=== PATIENT | male | born 1960 ===

== ENCOUNTER 2017-02-10 08:51 | Inpatient (IN) | payer BC, OTHER ==
[~2017-02-10] VITALS: Ht 182.9 cm; Wt 81.6 kg
--- NOTE | 2017-02-11 10:20 | NUR ---
PRE ADMISSION 56 year old male presents at intake, alert and oriented x4, verbally responsive, not in any apparent acute distress. Patient's BP: 101/71 P:92 T: 98.0, R: 16, o2sat: 96% room air. Patient denies any food or drug allergies. Reports substance use of: oxycodone, prescribed to patient by his doctor for pain mgmt, Patient reports 4 ankle fusion surgeries in the past 4 years. Patient reports taking oxycodone every day for four years 15mg QID PO, last took 02/10/2017 at 0200, 15mg. Patient reports take Neurontin as ordered. Patient reports pre existing diagnosis of: anxiety. Denies any history of seizure. Patient was educated regarding all unit policies and procedures with good verbal understanding. Patient was seen and examined by Dr. jackson at intake office.
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
[2017-02-11] MEDS ORDERED: GABA-534 PO (11:01)
[2017-02-11] MEDS ORDERED: ASPI-869 PO (11:01)
[2017-02-11 11:26] VITALS: BP 101/71
[2017-02-11 13:00] VITALS: BP 118/83
[2017-02-11] MEDS ORDERED: ACETAMINOPHEN 325 MG TABLET PO PRN (13:15)
[2017-02-11] MEDS ORDERED: DICYCLOMINE HCL 20 MG TABLET PO PRN (13:15)
[2017-02-11] MEDS ORDERED: ONDANSETRON ODT 4 MG TAB.RAPDIS SL PRN (13:15)
[2017-02-11] MEDS ORDERED: MAGNESIUM HYDROXIDE 30 ML LIQUID UDC PO PRN (13:15)
[2017-02-11] MEDS ORDERED: ONDANSETRON 4 MG/2 ML VIAL IM PRN (13:15)
[2017-02-11] MEDS ORDERED: BUPRENORPHINE HCL 2 MG TAB.SUBL SL PRN (13:15)
[2017-02-11] MEDS ORDERED: MAG HYDROX/AL HYDROX/SIMETH 30 ML LIQUID UDC PO PRN (13:15)
[2017-02-11] MEDS ORDERED: LOPERAMIDE HCL 2 MG CAPSULE PO PRN ×2 (13:15)
[2017-02-11] MEDS ORDERED: MIRALAX 17 GM POWD.PACK PO PRN (13:15)
[2017-02-11] MEDS: GABAPENTIN 300 MG CAPSULE PO SCH ×2 (14:16→20:28)
[2017-02-11] MEDS: HYDROXYZINE PAMOATE 25 MG CAPSULE PO PRN ×2 (14:16→21:08)
[2017-02-11 14:49] LABS: *AMPHETAMINE, URINE NEGATIVE (NEGATIVE); *BARBITURATE, URINE NEGATIVE (NEGATIVE); *CANNABINOID, URINE NEGATIVE (NEGATIVE); *COCCAINE, URINE NEGATIVE (NEGATIVE); *OPIATE, URINE POSITIVE (NEGATIVE); *PHENCYCLIDINE SCREEN,URINE NEGATIVE (NEGATIVE)
--- NOTE | 2017-02-11 15:17 | NUR ---
VISTARIL REASSESSMENT Medication with some relief, patient still feeling "a little bit anxious" will continue to monitor. encouraged to attend group therapies/sessions to learn new coping skills to prevent relapse.
[2017-02-11 17:09] VITALS: BP 128/87
[2017-02-11] MEDS: IBUPROFEN 600 MG TABLET PO PRN (17:18)
--- NOTE | 2017-02-11 17:18 | NUR ---
PRN IBUPROFEN Patient c/o generalized body pain, 10/25, administered ibuprofen as ordered, will monitor effectiveness of medication.
[2017-02-11] MEDS ORDERED: BUPRENORPHINE HCL 2 MG TAB.SUBL SL ONE (17:30)
--- NOTE | 2017-02-11 18:18 | NUR ---
IBUPROFEN REASSESSMENT Patient reports medication effective, current pain level 2/10 tolerable as per patient, will continue to monitor.
--- NOTE | 2017-02-11 18:25 | NUR ---
PRN VISTARIL Patient c/o increase in anxiety, provided with non pharmacological interventions with no relief, administered Vistaril as ordered, will monitor effectiveness of medication. Addendum: 02/11/17 at 1826 by SOPHY RUEDA LVN medication above was administered at 1417.
--- NOTE | 2017-02-11 18:51 | NUR ---
END OF SHIFT Patient alert and oriented x4, patient compliant with therapeutic plan of care. Patient with admitting Dx: Opiate dependence, patient was administered during shift, continues under close observation, patient is scheduled to begin a 4 day Subutex taper tomorrow morning, during shift patient receive a one time dose of Subutex 2mgSL as ordered, by Dr. Martinez, medication well tolerated. 1300 assessment patient presented with: anxiety with cow score of: 2; 1700 assessment patient presented with: c/o chills, severe bone and joint aches, increase in anxiety and irritable with cow score of: 6. Patient encouraged adequate PO fluid intake as tolerated, Encouraged to attend group therapies/sessions to learn new coping skills to prevent relapse. denies any SI/HI. Patient administered PRN: Ibuprofen and Vistaril during shift, medications effective. Patients safety measures are in place. all needs met and rendered. Patient endorsement report given to night order selector nurse, all pertinent information discussed. Safety measurers in place. will continue to monitor.
--- NOTE | 2017-02-11 19:10 | NUR ---
START OF SHIFT Patient is a 56-year-old male admitted on 02/11/17, earlier today, for opiate dependence. Past medical history includes bilateral total knee replacements and right ankle fusion, x4. Patient is NKA, FULL code, and on a regular diet. Patient is scheduled to start a 4 day Subutex taper tomorrow. Patient is on fall precautions. Upon assessment, patient is awake and oriented x4, complaining of mild "the usual symptoms" without any specific complaints. Respirations are even and unlabored, no distress noted at this time. Patient's bed locked in low position, side rails up x2, call light within reach. Will continue to monitor.
[2017-02-11 20:00] VITALS: BP 103/73
[2017-02-11] MEDS ORDERED: BUPRENORPHINE HCL 2 MG TAB.SUBL SL SCH (21:00)
[2017-02-11] MEDS: diphenhydrAMINE 50 MG CAPSULE PO PRN (21:08)
--- NOTE | 2017-02-11 21:08 | NUR ---
PRN BENADRYL AND VISTARIL Patient complains of inability to sleep and increased anxiety. PRN Benadryl and Vistaril given PO. Patient's respirations are even and unlabored. Safety measures in place, patient's bed is locked in low position, side rails up x2, call light within reach. Will reassess in one hour.
--- NOTE | 2017-02-11 22:08 | NUR ---
PRN BENADRYL AND VISTARIL REASSESSMENT Patient is resting in bed with eyes closed, respirations are even and unlabored. PRN Benadryl and Vistaril effective. Safety measures in place, patient's bed is locked in low position, side rails up x2, call light within reach. Will continue to monitor.
[2017-02-11 23:24] LABS: BASOPHILS % (AUTO) 0.6 % (0.0-2.0); EOSINOPHILS # (AUTO) 0.1 K/uL (0.0-0.7); EOSINOPHILS % (AUTO) 1.6 % (0.0-7.0); HEMATOCRIT 40.6 % (36.7-47.1); HEMOGLOBIN 13.9 g/dL (12.5-16.3); LYMPHOCYTES % (AUTO) 27.4 % (20.5-51.5); MEAN CORPUSCULAR HGB CONC 34 g/dL (32.5-36.3); MEAN CORPUSCULAR VOLUME 90.7 fL (73.0-96.2); MONOCYTES # (AUTO) 0.7 K/uL (2.0-10.0); NEUTROPHILS # (AUTO) 4.5 K/uL (1.8-8.9); NEUTROPHILS % (AUTO) 61.4 % (38.5-71.5); PLATELET COUNT (AUTO) 208 K/uL (152-348); RED BLOOD CELL COUNT(AUTO) 4.47 MIL/uL (4.06-5.63); WHITE BLOOD COUNT (AUTO) 7.3 K/uL (3.6-10.2)
[2017-02-11 23:38] LABS: ALANINE AMINOTRANSFERASE 44 U/L (16-63); ALKALINE PHOSPHATASE 61 U/L (50-136); ASPARTATE AMINOTRANSFERASE 37 U/L (15-37); BILIRUBIN,TOTAL 0.4 mg/dL (0.2-1.0); CARBON DIOXIDE 27 mmol/L (21-32); CHLORIDE 104 mmol/L (98-107); CREATININE 1.2 mg/dL (0.6-1.3); GLUCOSE 115 mg/dL (74-106); MAGNESIUM 2.1 mg/dL (1.8-2.4); TOTAL PROTEIN, SERUM 6.7 g/dL (6.4-8.2); UREA NITROGEN, BLOOD 17 mg/dL (7-18)
--- NOTE | 2017-02-12 | NUR ---
MIDNIGHT VITALS REFUSED, COWS DEFERRED Patient refused midnight vitals signs, respirations are 16/min, even and unlabored. COWS deferred due to patient asleep; to be assessed/scored while patient is awake per unit protocol. Safety measures in place, bed locked in low position, side rails up x2, call light within reach. Will continue to monitor.
[2017-02-12 01:07] LABS: ETHANOL < 3 MG/DL (0-0)
--- NOTE | 2017-02-12 04:00 | NUR ---
4AM VITALS REFUSED, COWS DEFERRED Patient refused 4AM vitals signs, respirations are 16/min, even and unlabored. COWS deferred due to patient asleep; to be assessed/scored while patient is awake per unit protocol. Safety measures in place, bed locked in low position, side rails up x2, call light within reach. Will continue to monitor.
[2017-02-12 04:40] VITALS: BP 114/66
[2017-02-12] MEDS: CLONIDINE HCL 0.1 MG TABLET PO PRN ×2 (04:57→16:53)
[2017-02-12] MEDS: HYDROXYZINE PAMOATE 25 MG CAPSULE PO PRN ×2 (04:57→16:52)
[2017-02-12] MEDS: IBUPROFEN 600 MG TABLET PO PRN (04:57)
--- NOTE | 2017-02-12 04:57 | NUR ---
PRN Administration Patient presented with complains of sweating, chills, 7/10 generalized body aches, slight tremors and mild anxiety. Vitals WNL. PRN Clonidine, Vistaril & Motrin administered as ordered. Will reassess for effectiveness of medication.
--- NOTE | 2017-02-12 05:57 | NUR ---
PRN REASSESSMENT Patient is resting in bed with eyes closed. PRN medications effective. Respirations are even and unlabored. Safety measures in place, bed locked in low position, side rails up x2, call light within reach. Will continue to monitor.
--- NOTE | 2017-02-12 07:30 | NUR ---
END OF SHIFT Patient is a 56-year-old male admitted on 02/11/17 for opiate dependence. Past medical history includes bilateral total knee replacements and right ankle fusion, x4. Patient is NKA, FULL code, and on a regular diet. Patient is scheduled to start a 4 day Subutex taper today. Patient slept for 6 hours, total intake 500mL, void x1, stool x0. PRN Benadryl and Vistaril given last night, PRN Clonidine, Vistaril & Motrin given this morning at 0457. Last COWS score was 7. Patient is on fall precautions. Safety measures in place, patients bed locked in low position, side rails up x2, call light within reach. Will endorse to day shift.
--- NOTE | 2017-02-12 07:45 | NUR ---
START OF SHIFT Rcvd endorsement from ongoing nurse, client is in room, he is a/o x4. Client presents with anxious mood, flat affect, clammy skin, and enlarged pupils. He reports body aches, chills, colds, stomach cramps, and fatigue. Encourage client to attend to group therapy for skills to maintain sober. Encourage client to increase PO fluid intake as tolerated to facilitate detox. Client is a 56 y/o male, admitted to [facility] for withdrawal from prescribed oxycodone. He is on a 4 day Subutex taper, tolerating well (day 2). Last COWS 7 @ 0400. PRN Benadryl 50mg PO for inability to sleep, Vistaril 25mg PO for anxiety, Clonidine 0.1mg for sweating, chills, Vistaril 25mg PO for mild anxiety & Motrin 600mg PO for generalized body aches 09/24 noted effective, client slept6 hrs. He denies a hx of withdrawal-induced seizures, Client reports NKA, full code, regular diet. Side rails x 2 up, universal precautions. Call light within reach.
[2017-02-12] MEDS: GABAPENTIN 300 MG CAPSULE PO SCH ×2 (08:13→14:28)
[2017-02-12] MEDS: BUPRENORPHINE HCL 2 MG TAB.SUBL SL SCH ×3 (08:13→21:07)
--- NOTE | 2017-02-12 08:13 | NUR ---
Tubersol Test 0.1mL ID administered to Left forearm, client tolerated well.
[2017-02-12 08:17] VITALS: BP 118/76
[2017-02-12] MEDS ORDERED: TUBERCULIN,PURIF.PROT.DERIV. 5 TU/0.1 ML TEST ID ONE (09:00)
[2017-02-12 12:32] VITALS: BP 109/72
--- NOTE | 2017-02-12 12:40 | NUR ---
Dr. Martinez ordered PT gait evaluation DME
[2017-02-12] MEDS: KETOROLAC TROMETHAMINE 30 MG INJ IM PRN (14:29)
--- NOTE | 2017-02-12 14:29 | NUR ---
PRN Toradol Inj 30mg IM administered to L deltoid for generalized pain 10/25. Call light within reach.
--- NOTE | 2017-02-12 14:59 | NUR ---
Reassessment PRN Toradol Inj 30mg IM effective L deltoid for generalized pain 0/10. Call light within reach.
--- NOTE | 2017-02-12 16:53 | NUR ---
PRN Vistaril 25mg PO for anxiety, Clonidine 0.1mg PO administered for sweating, chills. Will continue to monitor. call light within reach.
[2017-02-12 16:55] VITALS: BP 129/82
--- NOTE | 2017-02-12 17:53 | NUR ---
Reassessment PRN Vistaril 25mg PO for anxiety, Clonidine 0.1mg for sweating, chills, noted effective.
--- NOTE | 2017-02-12 19:30 | NUR ---
START OF SHIFT Client is a 56 y/o male, admitted to [facility] for withdrawal from prescribed oxycodone. He is on a 4 day Subutex taper, tolerating well (day 2). Last COWS 7 @ 1600. PRN Toradol 30mg INj for generalized body aches 10/25, Vistaril 25mg PO for anxiety, Clonidine 0.1mg for sweating, chills, noted effective. He denies a hx of withdrawal-induced seizures, Client reports NKA, full code, regular diet. Side rails x 2 up, universal precautions. Call light within reach. Addendum: 02/12/17 at 2004 by MIGUEL HOLGUIN RN END OF SHIFT
--- NOTE | 2017-02-12 19:31 | NUR ---
Start of shift note Received report from day shift nurse. Pt is a 56 yo male, A+Ox4, presenting to [facility] for Opiate/Benzo dependence. Pt has NKA, is on Full code status, and on Regular diet. Pt is on Fall precautions. Pt has HX of Bilateral knee replacements and Right ankle fusion x4. Pt is on 4 day Subutex taper, tolerated well. No s/s of distress noted at this time. Respirations even and unlabored. Will continue to monitor.
[2017-02-12 20:11] VITALS: BP 98/60
[2017-02-12] MEDS ORDERED: GABAPENTIN 300 MG CAPSULE PO SCH (21:00)
[2017-02-12] MEDS: CLONIDINE HCL 0.1 MG TABLET PO SCH (21:06)
[2017-02-13 00:17] VITALS: BP 108/75
[2017-02-13] MEDS: diphenhydrAMINE 50 MG CAPSULE PO PRN (02:43)
--- NOTE | 2017-02-13 02:52 | NUR ---
PRN Benadryl Pt c/o inab ility to sleep and requested for PRN Benadryl. Medication given and tolerated well. No s/s of distress noted at this time. Respirations even and unlabored. Will continue to monitor.
--- NOTE | 2017-02-13 03:50 | NUR ---
PRN Benadryl Reassessment Medication effective. Pt is resting well in bed. No s/s of ASE/distress noted at this time. Respirations even and unlabored. Will continue to monitor.
[2017-02-13 04:25] VITALS: BP 111/78
--- NOTE | 2017-02-13 07:00 | NUR ---
End of shift note Pt is a 56 yo male, A+Ox4, presenting to [facility] for Opiate/Benzo dependence. Pt has NKA, is on Full code status, and on Regular diet. Pt is on Fall precautions. Pt has HX of Bilateral knee replacements and Right ankle fusion x4. Pt is on 4 day Subutex taper, tolerated well. Pt was given PRN Benadryl @0252. Pt slept for a total of 8 HRS. Last COWS: 4 @0400. No s/s of distress noted at this time. Respirations even and unlabored. Will endorse to day shift nurse.
[2017-02-13 08:00] VITALS: BP 111/93
--- NOTE | 2017-02-13 08:07 | NUR ---
START OF SHIFT RECEIVED PT LAYING IN BED, A/O X4. PT PRESENTED ANXIETY AND WORRIED AFFECT. PT REPORTED HAVING BODY ACHES, RESTLESSNESS, DYSPEPSIA, STOMACH DISCOMFORT, RUNNING NOSE. COWS 5 AT 0800. VITAL SIGNS STABLE. PT IS ON A 4 DAY SUBUTEX TAPER TO MANAGE S/S OF OPIATE W/D. RESPIRATIONS EVEN AND UNLABORED. ENCOURAGED TO TO INCREASE FLUIDS TO PROMOTE/ASSIST IN DETOX. FALL PRECAUTIONS TAKEN. SIDE RAILS UP X2, BED ON LOWEST POSITION. CALL LIGHT WITHIN REACH. WILL CONTINUE TO MONITOR AND OFFER SUPPORT.
[2017-02-13] MEDS: GABAPENTIN 300 MG CAPSULE PO SCH ×3 (08:33→21:20)
[2017-02-13] MEDS: CLONIDINE HCL 0.1 MG TABLET PO SCH ×2 (08:37→21:19)
[2017-02-13] MEDS: KETOROLAC TROMETHAMINE 30 MG INJ IM PRN (08:42)
--- NOTE | 2017-02-13 08:42 | NUR ---
PRN TORADOL PT COMPLAINED GENERALIZED BODY ACHES AND RIGHT ANKLE PAIN 9/10 PAIN. ADMINISTERED TORADOL 30 MG/ML IM PRN AT 0842.
[2017-02-13] MEDS ORDERED: BUPRENORPHINE HCL 2 MG TAB.SUBL SL SCH (09:00)
--- NOTE | 2017-02-13 09:12 | NUR ---
PRN TORADOL REASSESSMENT PT STATED PAIN IS MUCH IMPROVED. PAIN LEVEL AT 3/10
[2017-02-13 10:51] LABS: HEPATITIS B SURFACE AG Negative (Negative)
--- NOTE | 2017-02-13 11:16 | NUR ---
Therapist prompted client about group times. Client stated he will start attending groups today.
[2017-02-13 12:00] VITALS: BP 108/80
[2017-02-13] MEDS: HYDROXYZINE PAMOATE 25 MG CAPSULE PO PRN (13:46)
[2017-02-13] MEDS: BUPRENORPHINE HCL 2 MG TAB.SUBL SL SCH ×2 (14:46→21:20)
[2017-02-13] MEDS ORDERED: NAPROXEN 500 MG TABLET PO ONE (15:00)
[2017-02-13 16:00] VITALS: BP 107/77
--- NOTE | 2017-02-13 19:33 | NUR ---
END OF SHIFT PT IS A/O X4, RESPIRATIONS EVEN AND UNLABORED. PT REPORTED MILD ANXIETY AND RIGHT ANKLE PAIN. PT WAS GIVEN TORADOL 30/1ML IM PRN AT 0842 FOR 8/10 PAIN. PT STATED PAIN HAD DIMINISHED AT REASSESSMENT. PT WAS GIVEN VISTARIL 25 MG PO PRN FOR ANXIETY AT 1346. PT STATED THE MEDICATION HAD HELPED HIS ANXIETY. PT HAD COMPLETED HIS SUBUTEX TAPER YESTERDAY. LAST COWS 3 AT 1700. ENDORSEMENT GIVEN TO RAMP JOCKEY NURSE.
--- NOTE | 2017-02-13 19:34 | NUR ---
Start of shift note Received report from day shift nurse. Pt is a 56 yo male, A+Ox4, presenting to [facility] for Opiate/Benzo dependence. Pt has NKA, is on Full code status, and on Regular diet. Pt is on Fall precautions. Pt has HX of Bilateral knee replacements and Right ankle fusion x4. Pt is on 4 day Subutex taper, tolerated well. No s/s of distress noted at this time. Respirations even and unlabored. Will continue to monitor.
[2017-02-13 20:19] VITALS: BP 111/74
[2017-02-13] MEDS: NAPROXEN 500 MG TABLET PO SCH (21:19)
[2017-02-14 00:16] VITALS: BP 115/75
[2017-02-14] MEDS: diphenhydrAMINE 50 MG CAPSULE PO PRN (00:32)
--- NOTE | 2017-02-14 00:35 | NUR ---
PRN Benadryl Pt c/o inability to sleep and requested for PRN Benadryl. Medication given and tolerated well. No s/s of distress noted at this time. Respirations even and unlabored. Will continue to monitor.
[2017-02-14 04:32] VITALS: BP 119/72
--- NOTE | 2017-02-14 06:46 | NUR ---
End of shift note Pt is a 56 yo male, A+Ox4, presenting to [facility] for Opiate/Benzo dependence. Pt has NKA, is on Full code status, and on Regular diet. Pt is on Fall precautions. Pt has HX of Bilateral knee replacements and Right ankle fusion x4. Pt is on 4 day Subutex taper, tolerated well. Pt was given PRN Benadryl @0035. Pt slept for a total of 5 HRS. Last COWS: 3 @0400. No s/s of distress noted at this time. Respirations even and unlabored. Will endorse to day shift nurse.
--- NOTE | 2017-02-14 08:03 | NUR ---
START OF SHIFT RECEIVED PT LAYING IN BED, A/O X4. PT REPORTED HAVING ANXIETY, GENERALIZED PAIN, RESTLESSNESS, SLIGHT, STOMACH DISCOMFORT. PT IS REQUESTING TORADOL WITH HIS MORNING MEDS, PAIN 11/25. COWS 2 AT 0800. PT SLEPT A TOTAL OF 5 HRS. RESPIRATIONS EVEN AND UNLABORED. ENCOURAGED TO TO INCREASE FLUIDS TO PROMOTE/ASSIST IN DETOX. FALL PRECAUTIONS TAKEN. SIDE RAILS UP X2, BED ON LOWEST POSITION. CALL LIGHT WITHIN REACH. WILL CONTINUE TO MONITOR AND OFFER SUPPORT.
[2017-02-14 08:06] VITALS: BP 114/48
[2017-02-14] MEDS: CLONIDINE HCL 0.1 MG TABLET PO SCH ×2 (08:57→20:22)
[2017-02-14] MEDS: BUPRENORPHINE HCL 2 MG TAB.SUBL SL SCH ×3 (08:57→20:23)
[2017-02-14] MEDS: FAMOTIDINE 20 MG TABLET PO SCH (08:59)
[2017-02-14] MEDS: GABAPENTIN 300 MG CAPSULE PO SCH ×3 (08:59→20:22)
[2017-02-14] MEDS: NAPROXEN 500 MG TABLET PO SCH ×2 (08:59→20:23)
[2017-02-14] MEDS: KETOROLAC TROMETHAMINE 30 MG INJ IM PRN (09:00)
--- NOTE | 2017-02-14 09:00 | NUR ---
REFUSED MEDICATION PT REFUSED NAPROXEN AT 0900. PT REQUESTED TO HAVE TORADOL 30 MG IM INSTEAD AND IT WORKS FOR HIS PAIN.
--- NOTE | 2017-02-14 09:00 | NUR ---
PRN PT C/O PAIN IN THE RIGHT ANKLE 11/25. TORADOL GIVEN 30 MG IM PRN. PT TOLERATED WELL.
--- NOTE | 2017-02-14 10:00 | NUR ---
REASSESSMENT PT GIVEN TORADOL PRN FOR 9 /10 PAIN IN RIGHT ANKLE. REASSESSED AT 1000 AND PT HAD LESS PAIN.
[2017-02-14 12:00] VITALS: BP 114/48
[2017-02-14 16:00] VITALS: BP 149/77
[2017-02-14] MEDS: HYDROXYZINE PAMOATE 25 MG CAPSULE PO PRN (17:08)
--- NOTE | 2017-02-14 17:08 | NUR ---
PRN PT C/O ANXIETY AND ADMINISTERED VISTARIL 25 MG PO PRN AT 1708.
--- NOTE | 2017-02-14 17:19 | NUR ---
client was prompted to attend group today. Client agreed to attend.
--- NOTE | 2017-02-14 19:19 | NUR ---
END OF SHIFT PT IS SITTING IN BED, A/O X4. PT REPORTED HAVING ANXIETY, PAIN IN THE RIGHT ANKLE AND BILATERAL KNEES. PT OBSERVED TO BE AGITATED AND STATED HE HAS ANXIETY. PT LAST COWS 3 AT 1700. PT HAS BEEN GIVEN TORADOL 30 MG IM PRN PAIN AT 0900 AND PT REPORTED MED EFFECTIVE UPON REASSESSMENT. PT HAS BEEN GIVEN VISTARIL 25 MG PO PRN ANXIETY AT 1708. PT REFUSED NAPROXEN IN THE AM AND REQUESTED FOR TORADOL. RESPIRATIONS EVEN AND UNLABORED. ENCOURAGED TO TO INCREASE FLUIDS TO PROMOTE/ASSIST IN DETOX. FALL PRECAUTIONS TAKEN. SIDE RAILS UP X2, BED ON LOWEST POSITION. CALL LIGHT WITHIN REACH. WILL GIVE ENDORSEMENT TO NIGHT NURSE.
--- NOTE | 2017-02-14 19:30 | NUR ---
START OF SHIFT Pt is a 56 y/o male admitted on 02/11/17 for opiate and benzo dependence. Pt was dependent on oxycodone 15 mg QID for 4 years and Valium 5 mg weekly for 4 years. Pt is full code, NKA, regular diet and on fall precautions. No reported seizure hx. Pt reports PMH of bilateral total knee replacement, ankle fusion x 4 and anxiety. Pt is also positive for Hepatitis C. Pt is on a 4 day Subutex taper that started on 02/12/17, tolerating well. Last COW 3 during day shift. Pt administered PRN Toradol and Vistaril during the day. Upon assessment pt presents with generalized body aches, anxiety, restlessness, intermittent tremors, chills, mild nausea, mild stomach cramps, dysphoria and anhedonia. Pt also complains of pain in bilateral knees and right ankle r/t chronic pain. Respirations 16, even and unlabored. Denies V/D. Denies chest pain or SOB. Medications due. Safety measures in place.
[2017-02-14 20:00] VITALS: BP_SYST 109; BP_SYST 117; BP_DIAS 78; BP_DIAS 79
--- NOTE | 2017-02-15 | NUR ---
COWS DEFERRED AND VITALS REFUSED Pt is laying in bed with eyes closed, COWS deferred, to be assessed when pt is awake per orders. Vitals refused. Respirations 16, even and unlabored. Safety measures in place. Call light within reach. Will continue to monitor.
--- NOTE | 2017-02-15 07:02 | NUR ---
END OF SHIFT Pt is a 56 y/o male admitted on 02/11/17 for opiate and benzo dependence. Pt was dependent on oxycodone 15 mg QID for 4 years and Valium 5 mg weekly for 4 years. Pt is full code, NKA, regular diet and on fall precautions. No reported seizure hx. Pt reports PMH of bilateral total knee replacement, ankle fusion x 4 and anxiety. Pt is also positive for Hepatitis C. Pt is on a 4 day Subutex taper that started on 02/12/17, tolerating well. Pt presented with generalized body aches, anxiety, restlessness, intermittent tremors, chills, mild nausea, mild stomach cramps, dysphoria and anhedonia. Pt also complains of pain in bilateral knees and right ankle r/t chronic pain. Scheduled medications administered, effective in S/S of withdrawal as verbalized by pt. Last COWS 5 at 1999. Pt slept 8 hours. Intake 1110 ml, void x 2, stool x 0. Safety measures in place. Call light within reach. Pts needs have been met. Endorsed to day shift nurse.
--- NOTE | 2017-02-15 07:30 | NUR ---
START OF SHIFT Pt 56 y/o male admitted for opiate dependence. Pt received in room awake watching television on bed. Pt alert and oriented to name, place, and time. Perrla. Skin warm and slightly moist to touch. Respirations even and unlabored. Bilateral hand tremors noted slightly. It was reported that pt slept for 8 hours last night. Pt appears slightly anxious. Pt with c/o chronic pain of BLE. Bed on lowest position with side rails x2 up for safety. Call light within reach. No distress noted at this time.
[2017-02-15 08:31] VITALS: BP 117/70
[2017-02-15] MEDS: FAMOTIDINE 20 MG TABLET PO SCH (08:36)
[2017-02-15] MEDS: GABAPENTIN 300 MG CAPSULE PO SCH ×3 (08:36→20:58)
[2017-02-15] MEDS: CLONIDINE HCL 0.1 MG TABLET PO SCH ×2 (08:37→20:59)
[2017-02-15] MEDS: KETOROLAC TROMETHAMINE 30 MG INJ IM PRN ×3 (08:39→23:06)
--- NOTE | 2017-02-15 08:39 | NUR ---
PRN Pt states has BLE pain 10/25. Toradol IM prn per MD order given and tolerated well.
[2017-02-15] MEDS: NAPROXEN 500 MG TABLET PO SCH ×2 (08:46→21:00)
[2017-02-15] MEDS ORDERED: BUPRENORPHINE HCL 2 MG TAB.SUBL SL SCH (09:00)
--- NOTE | 2017-02-15 09:39 | NUR ---
PRN MAYRA Pt states pain 06/25.
[2017-02-15] MEDS: HYDROXYZINE PAMOATE 25 MG CAPSULE PO PRN ×2 (10:32→22:43)
--- NOTE | 2017-02-15 10:36 | NUR ---
PRN Pt anxious and restless. Vistaril po prn per MD order given and tolerated well.
--- NOTE | 2017-02-15 11:36 | NUR ---
PRN EVAL Pt observed in patio at this time. No distress noted at this time.
[2017-02-15 12:24] VITALS: BP 124/78
[2017-02-15 16:00] VITALS: BP 104/72
--- NOTE | 2017-02-15 17:09 | NUR ---
PRN pt with c/o pain ble 10/25. Toradol im prn per MD order given and tolerated well.
--- NOTE | 2017-02-15 18:09 | NUR ---
PRN MAYRA Pt states pain 05/25. Pt observed walking around the unit.
--- NOTE | 2017-02-15 18:30 | NUR ---
END OF SHIFT Pt 56 y/o male admitted for opiate dependence. Pt alert and oriented to name, place, and time. Perrla. Skin warm and slightly moist to touch. Respirations even and unlabored. Bilateral hand tremors noted. Pt observed mostly in room throughout the day, but did attend group activity. Pt was seen by MD today. Pt medication compliant and tolerated well. No ASE noted. Bed on lowest position with side rails x2 up for safety. Call light within reach. No distress noted at this time.
--- NOTE | 2017-02-15 19:05 | NUR ---
Start of Shift Patient Received. Patient is in activities room participating in group activities. Patient is a 56 year old male admitted on 02/11/17 for Opiate and Benzo Dependence under the care of Dr. Martinez. Patient has completed a 4 day Subutex and Set for discharge tomorrow morning 02/16/17. Patient is able to verbalize no known allergies, wishes to be full code, following a regular diet, placed on fall precautions, Past medical history noted as Bilateral total knee replacements, Right ankle fusion surgery x4, Anxiety, Hep C (+). Per endorsement, patient received PRN Toradol x2 with medication noted to be effective. Last noted COWS 3. All needs attended to promptly. Will continue to monitor.
[2017-02-15 20:53] VITALS: BP_SYST 111; BP_DIAS 62; BP_DIAS 72
--- NOTE | 2017-02-15 21:00 | NUR ---
Routine Medication Refused Patient Refused routine Naprosyn and verbalized "Im Ok right now. I just dont really think this works as well as the injection." Risks and Benefits explained and patient still refused. Will continue to monitor.
[2017-02-15] MEDS: diphenhydrAMINE 50 MG CAPSULE PO PRN (22:43)
--- NOTE | 2017-02-15 23:10 | NUR ---
PRN Medication Administration Patient verbalizing increased anxiety, inability of falling asleep and increased pain 8/10 due to generalized body aches. PRN Vistaril, PRN Benadryl, PRN Toradol administered. Will continue to monitor.
[2017-02-15] MEDS ORDERED: GABA-534 PO (23:39)
[2017-02-15] MEDS ORDERED: DIPH50CA37 PO (23:39)
[2017-02-15] MEDS ORDERED: DICY20TA28 PO (23:39)
[2017-02-15] MEDS ORDERED: FAMO20TA8 PO (23:39)
[2017-02-15] MEDS ORDERED: HYDR-3895 PO (23:39)
[2017-02-15] MEDS ORDERED: NAPR500T3 PO (23:39)
[2017-02-15] MEDS ORDERED: CLON0.1T14 PO (23:43)
[2017-02-15] MEDS ORDERED: METH-406 PO (23:43)
--- NOTE | 2017-02-16 | NUR ---
PRN Medication Administration Patient noted in bed sleeping. Breathing even and non labored. No facial grimacing noted. No restlessness or discomfort noted. PRN Vistaril, Benadryl, and Toradol noted to be effective. Will continue plan of care as ordered. Addendum: 02/16/17 at 0648 by BONITA PARTIDA LVN Correction: PRN Medication Reassessment
[2017-02-16 00:20] VITALS: BP 114/75
[2017-02-16 04:13] VITALS: BP 109/67
[2017-02-16] MEDS: KETOROLAC TROMETHAMINE 30 MG INJ IM PRN (06:43)
--- NOTE | 2017-02-16 06:48 | NUR ---
PRN Medication Administration Patient is noted awake and verbalizing pain of 8/10 generalized body pain. PRN Toradol administered. Will endorse to morning shift for reassessment.
--- NOTE | 2017-02-16 07:17 | NUR ---
End of Shift Patient is in bed sleeping. Breathing even and non labored. Patient is a 56 year old male admitted on 02/11/17 for Opiate and Benzo Dependence under the care of Dr. Martinez. Patient has completed a 4 day Subutex and Set for discharge today 02/16/17. No Known Allergies, Full Code, placed on fall precautions, skin noted intact. Past medical history noted as Bilateral total knee replacements, Right ankle fusion surgery x4, Anxiety, Hep C (+). Patient received PRN Vistaril, Benadryl, and Toradol with all medications noted to be effective. Last noted COWS 3. Slept a total of 7 hours. All needs attended to promptly. Will endorse to continue to monitor.
--- NOTE | 2017-02-16 07:35 | NUR ---
Start of Shift Report received. Patient is a 56 year old male admitted on 02/11/17 for Opiate and Benzo Dependence under the care of Dr. Martinez. Patient has completed a 4 day Subutex and Set for discharge today 02/16/17. No Known Allergies, Full Code, placed on fall precautions, skin noted intact. Past medical history noted as Bilateral total knee replacements, Right ankle fusion surgery x4, Anxiety, Hep C (+). Patient received PRN Vistaril, Benadryl, and Toradol with all medications noted to be effective. Last noted COWS 3. Slept a total of 7 hours. All needs attended to promptly. Fluids encouraged. Will endorse to continue to monitor.
[2017-02-16 08:00] VITALS: BP 138/98
[2017-02-16 08:48] VITALS: BP 138/98
[2017-02-16] MEDS: CLONIDINE HCL 0.1 MG TABLET PO SCH (08:48)
[2017-02-16] MEDS: FAMOTIDINE 20 MG TABLET PO SCH (08:48)
[2017-02-16] MEDS: NAPROXEN 500 MG TABLET PO SCH (08:48)
[2017-02-16] MEDS: GABAPENTIN 300 MG CAPSULE PO SCH (08:48)
--- NOTE | 2017-02-16 09:30 | NUR ---
DISCHARGE NOTE Pt is in stable condition. Vitals WNL, Pt alert and oriented x4, skin intact, Pt denies any SI/HI. All discharge paperwork completed dated and signed. Pt educated about discharge instructions, what to do after discharge when to contact MD as well as the s/s reportable to MD, pt verbalized understanding. Pt was provided with all of his discharge paperwork. Pt's last COWS:2 taken at 0800. Pt was discharged from [facility] on 02/16/17 at 0922. Pt left the building with all of his belongings, prescriptions and medications. MD and psychiatrist have been contacted notified and aware of pt's d/c.
== END 2017-02-16 09:22 | disposition home or self-care (01) | DRG 895 ==
LOC: SRC 02-11 09:16
PROVIDERS: ADMIT Internal Medicine; ATTEND Internal Medicine
DX: F11.23 Opioid dependence with withdrawal (principal); M87.871 Other osteonecrosis, right ankle; I15.9 Secondary hypertension, unspecified; Z96.653 Presence of artificial knee joint, bilateral; F41.9 Anxiety disorder, unspecified; G89.4 Chronic pain syndrome; Z20.5 Contact with and (suspected) exposure to viral hepatitis; M50.80 Other cervical disc disorders, unspecified cervical region; F13.90 Sedative, hypnotic, or anxiolytic use, unspecified, uncomplicated
CPT/HCPCS: 36415; 70030-TC; 80307; 80361; 83735; 85025; 86580; 86592; 86705; 86803; 87340; 87806; A4663; G0480; J1885; Q0163